=== PATIENT | male | born 1985 | race African-American/Black ===

== ENCOUNTER 2018-08-06 22:24 | Emergency (ER) | payer OTHER ==
[~2018-08-06] VITALS: Ht 182.9 cm; Wt 132.9 kg
[2018-08-06 22:31] VITALS: Ht 182.9 cm; Wt 132.9 kg
[2018-08-07 00:56] LABS: UA SPECIFIC GRAVITY >=1.030 (1.005-1.035); microscopic required? YES; urine erythrocyte NEGATIVE (NEGATIVE)
[2018-08-07 01:00] LABS: PLATELET COUNT 245 x10^3mcL (130-400); RED CELL DISTRIBUTION WIDTH 12.1 % (11.5-14.5)
[2018-08-07 01:10] LABS: CALCIUM 9.7 mg/dL (8.5-10.1); CARBON DIOXIDE 25.6 mmol/L (21-32); CHLORIDE SERUM 100 mmol/L (98-107); CREATININE SERUM 1.2 mg/dL (0.7-1.3); GFR1 > 60 mL/min; GLUCOSE SERUM 109 mg/dL (74-106); POTASSIUM SERUM 3.7 mmol/L (3.5-5.1); SODIUM SERUM 137 mmol/L (136-145)
[2018-08-07 01:22] LABS: ALBUMIN 3.6 g/dL (3.4-5.0); ALKALINE PHOSPHATASE 79 U/L (46-116); ALT/SGPT 26 U/L (16-63); AST/SGOT 17 U/L (15-37); BILIRUBIN TOTAL 1.6 mg/dL (0.20-1.00)
[2018-08-07 01:23] LABS: CK-MB < 0.5 ng/mL (0-3.6); CREATINE KINASE 174 U/L (39-308); TOTAL PROTEIN, SERUM 9.3 g/dL (6.4-8.2)
[2018-08-07 01:31] LABS: ATYPICAL LYMPH 2 %; BAND NEUTROPHIL 5 % (0-10); MONOCYTE 10 % (0-7); SEGMENTED NEUTROPHILS 71 % (37-75)
[2018-08-07 01:32] LABS: PLATELET MORPHOLOGY PLATELETS NORMAL; rbc morphology (normal/abnorm) NORMAL (NORMAL)
[2018-08-07 01:54] LABS: ERYTHROCYTE SED RATE 72 mm/hr (0-15)
[2018-08-07 01:58] VITALS: BP 127/78
== END 2018-08-07 04:14 | disposition left against medical advice (07) ==
LOC: ED 22:24
PROVIDERS: Specialist
DX: J36 Peritonsillar abscess (principal)
CPT/HCPCS: J1100; J1885; J2001; J2543; J3490; J7030; Q9967